=== PATIENT | female | born 1955 | race Caucasian/White ===

== ENCOUNTER 2018-05-07 15:32 | Emergency (ER) | payer MEDICARE, MEDICAID ==
[~2018-05-07 15:32] MED LIST: ISOVUE-370 76%-LOCM 1 ML ONE
[2018-05-07 17:45] LABS: Bilirubin Negative (Negative); Blood, Urine Negative (Negative); Clarity CLEAR (Clear); Glucose, Urine (Dipstick) >=1000 mg/dL (Negative); Leukocyte Negative (Negative); Nitrite Negative (Negative); Protein, Urine (Dipstick) 30 mg/dL (Neg-Trace); Specific Gravity, Urine 1.026 (1.002-1.036); Urobilinogen 0.2 mg/dL (0.2-1.0)
[2018-05-07 17:46] LABS: Bacteria/HPF None Seen HPF (None Seen); Hyaline Casts/LPF 4-6 HYALINE CAST LPF (0-3 Hyaline); Pathc Cast-AUWi Flag 1.16 (0-2.49); WBC/HPF None Seen HPF (0-3)
--- NOTE | 2018-05-07 17:53 | RAD ---
FRONTAL RADIOGRAPH CHEST 05/07/18 COMPARISON: None. HISTORY: Weakness. FINDINGS: A lobulated density is seen in the right costophrenic angle, which could represent eventration of the hemidiaphragm or a mass in the right cardiophrenic angle. Cardiac silhouette is prominent. No pneumo thorax, pleural fluid, focal consolidation, or alveolar edema. Followup CT examination advised to kar luate the rounded density in the right cardiophrenic angle. IMPRESSION: Rounded increased density in the right cardiophrenic angle as above. POS: YESY
[2018-05-07 17:59] LABS: RBC/HPF 0-3 HPF (0-3); Yeast-All Forms 1+ HPF (None Seen)
[2018-05-07 17:59] LABS: #Eosinphils 0.1 thou/uL (0.0-0.7); #Monocytes 0.3 thou/uL (0.11-0.59); #Neutrophils 2.7 thou/uL (1.40-6.50); %Basophils 0.9 % (0.0-1.0); %Eosinophils 1.5 % (0.0-10.0); %Lymphocytes 24.4 % (21.0-51.0); %Monocytes 7.2 % (0.0-10.0); Hemoglobin 11.8 g/dL (12.0-16.0); Mean Corpuscular HGB CONC 33.2 g/dL (32.0-36.0); Mean Corpuscular Hemoglobin 30.3 pg (27.0-31.0); Mean Corpuscular Volume 91.3 fL (78.0-98.0); Mean Platelet Volume 7.9 fL (7.4-10.4); Platelet Count 114 thou/uL (130-400); RBC Distribution Width 13.1 % (11.5-14.5); White Blood Cell (WBC) Count 4.1 thou/uL (4.8-10.8)
[2018-05-07 18:08] LABS: PLT Morphology Comment Appears Decreased; RBC Morphology Normal
[2018-05-07 18:20] LABS: ALT (SGPT) 14 U/L (8-55); AST (SGOT) 11 U/L (5-34); Albumin 3.8 g/dL (3.4-4.8); Alkaline Phosphatase 122 U/L (40-150); Anion Gap 14 mmol/L (10-20); BUN (Urea Nitrogen) 14 mg/dL (9.8-20.1); Bilirubin, Total 0.5 mg/dL (0.2-1.2); Calc. Creatinine Clearance 0 mL/min (70-130); Calcium 8.4 mg/dL (7.8-10.44); Carbon Dioxide 25 mmol/L (23-31); Chloride 100 mmol/L (98-107); Estimated GFR-MDRD 42; Globulin 2.8 g/dL (2.4-3.5); Glucose 416 mg/dL (80-115); Lipase 25 U/L (8-78); Potassium 4.1 mmol/L (3.5-5.1); Protein, Total 6.6 g/dL (6.0-8.3); Sodium 135 mmol/L (136-145)
--- NOTE | 2018-05-07 20:37 | CT ---
CT ABDOMEN AND PELVIS 05/07/18 COMPARISON: None. HISTORY: Three weeks of abdominal and genital pain. TECHNIQUE: Serial axial CT imaging at 5 mm intervals from lung bases through pubic symphysis with IV contrast. C oronal reformatted imaging obtained. FINDINGS: There is a huge ventral hernia with the majority of the patient's bowel extending through into this v entral hernia. This extends inferiorly to the axial level of the proximal femora. Secondary to body h abitus and the size of this hernia, the contents of the hernia laterally on the left are not fully im aged, this includes incomplete imaging of the larger and small bowel. The imaged lung bases are unrem arkable. No free intraperitoneal air or fluid is seen within the imaged portions of the abdomen or pe lvis. There is calcification at the level of the mitral and aortic valve, incompletely imaged. The liver an d gallbladder appear grossly unremarkable as does the spleen. The pancreas demonstrates atrophy and e xtends into the large ventral hernia. The right kidney is displaced anteriorly into the large hernia and demonstrates no acute findings. There are low density lesions associated with the right kidney me asuring up to 1.9 cm with Hounsfield units of approximately 24, which may represent complex cysts. Fo llowup renal ultrasound is advised. The left kidney appears grossly unremarkable. There is an IUD wit hin the pelvis. The urinary bladder is grossly unremarkable. The majority of the large and small bowel extend into the very large hernia mentioned above. The stom ach also extends into the hernia. This hernia measures at least 40 cm in transverse dimension with wi de diastasis of the abdominal wall musculature in the midline region. The vascular structures appear patent. There is no lymphadenopathy apparent within the abdomen or pel vis. The osseous structures demonstrate no acute findings. Multiple postoperative clips are seen within the inferior aspect of the above described hernia. There is severe degenerative change within the lumbar spine with multilevel severe disc space narrowing, d egenerative end plate change and vacuum disc formation a well as multilevel lower lumbar spine facet hypertrophic change. IMPRESSION: 1. Huge ventral hernia containing a large portion of the solid and hollow viscera as above. 2. Low density lesions within the right kidney for which nonemergent followup renal ultrasound i s advised. POS: [facility]
== END 2018-05-07 20:55 | disposition home or self-care (01) ==
LOC: ERS 15:32
DX: E11.65 Type 2 diabetes mellitus with hyperglycemia (principal); R10.32 Left lower quadrant pain; F41.9 Anxiety disorder, unspecified; I11.0 Hypertensive heart disease with heart failure; I50.9 Heart failure, unspecified; E78.00 Pure hypercholesterolemia, unspecified; Z79.82 Long term (current) use of aspirin; Z79.84 Long term (current) use of oral hypoglycemic drugs; Z79.899 Other long term (current) drug therapy
CPT/HCPCS: 36415; 36416; 51701; 71045; 74177; 80053; 81003; 81015; 83690; 85025; 93005; 96360; A4353

== ENCOUNTER 2018-07-29 08:42 | Outpatient (CLI) | payer MEDICARE, MEDICAID ==
--- NOTE | 2018-07-29 10:55 | RAD ---
ESOPHOGRAM AIR CONTRAST: History: Difficulty swallowing. Reflux. Hernia. FINDINGS: The esophagus has a normal appearance without significant hiatal hernia. There is slight decrease in primary and secondary peristalsis. No significant reflux. A 12 mm barium tablet traversed the esophagus without holdup. Please note that the patient has a very large anterior abdominal wall hernia, with the bottom two-thi rds of the stomach extending anterior to the abdominal wall. Review of prior CT scan also shows intrauterine contraceptive device. IMPRESSION: 1. Mild presbyesophagus. No evidence of significant hiatal hernia, reflux, or esophageal obstruction. 2. Of note on recent CT abdomen/pelvis, there was a very large anterior abdominal wall hernia that co ntains nearly all of the stomach and bowel and the right kidney. Also of special note was an intraute rine contraceptive device. This is an unusual finding in a patient of this age. It was discussed with the patient at the time of the exam. POS: YESY
== END 2018-07-29 08:43 | disposition home or self-care (01) ==
LOC: RAD 08:42
PROVIDERS: ATTEND Internal Medicine
DX: R10.84 Generalized abdominal pain (principal); K21.9 Gastro-esophageal reflux disease without esophagitis; R19.4 Change in bowel habit; K22.8 Other specified diseases of esophagus; K43.9 Ventral hernia without obstruction or gangrene
CPT/HCPCS: 74220